=== PATIENT | male | born 1985 | race Caucasian/White ===

== ENCOUNTER 2021-07-26 15:43 | Emergency (ER) | payer OTHER ==
[~2021-07-26 15:43] MED LIST: ADULT ASPIRIN81 MG PO
[2021-07-26 17:55] LABS: HEMOGLOBIN 15.1 gm/dl (14.0-17.5); RED BLOOD COUNT 5.01 M/UL (4.20-5.50); WHITE BLOOD COUNT 7.8 K/UL (4.5-11.0)
[2021-07-26 18:21] LABS: BUN/CREATININE RATIO 17 (0-10)
== END 2021-07-26 19:45 | disposition home or self-care (01) ==
LOC: ER1 15:43
PROVIDERS: Nurse Practitioner
DX: R20.2 Paresthesia of skin (principal)
CPT/HCPCS: 70450; 72125; 80053; 85025; 93971; 99284

== ENCOUNTER 2021-09-24 20:02 | Emergency (ER) | payer OTHER | END 2021-09-24 21:55 | disposition home or self-care (01) | LOC: ER1 20:02 | DX: R05.9 Cough, unspecified (principal); Z87.891 Personal history of nicotine dependence | CPT/HCPCS: 71045; 99283 ==